=== PATIENT | female | born 1960 | race Caucasian/White ===

== ENCOUNTER → 2020-05-16 | Outpatient (CLI) | payer OTHER ==
--- NOTE | 2020-05-16 13:46 | XR ---
Lumbosacral spine HISTORY: Low back pain 5 views of lumbosacral spine There is no evident spondylolysis or spondylolisthesis. Lumbar vertebral bodies show preserved height . Anterolisthesis grade 1 is present L5-S1. Sclerosis present in the posterior elements. Loss of disc height greatest at L5-S1, L3-4. Bone mineralization is reduced. IMPRESSION: Degenerative disc disease and facet arthropathy. Spondylolisthesis. Osteopenia.
== END | disposition home or self-care (01) ==
LOC: RADXRMAIN 12:00
PROVIDERS: ATTEND Family Medicine
DX: M43.16 Spondylolisthesis, lumbar region (principal); M51.36 Other intervertebral disc degeneration, lumbar region; M47.816 Spondylosis without myelopathy or radiculopathy, lumbar region; M85.88 Other specified disorders of bone density and structure, other site
CPT/HCPCS: 72110